=== PATIENT | male | born 1945 | race Caucasian/White ===

== ENCOUNTER 2020-07-05 10:38 | Emergency (ER) | payer OTHER ==
--- NOTE | 2020-07-05 11:39 | RAD ---
EXAM: XR Chest 1 View Portable PROVIDED CLINICAL HISTORY: Dyspnea COMPARISON: 06/28/2020 FINDINGS: Cardiac and mediastinal silhouette is unchanged in appearance. Persistent left pleural-parenchymal op acity. No evidence for pneumothorax. IMPRESSION: Persistent left basilar pleural-parenchymal opacity. Correlate for pneumonia. Follow-up recommended.
[2020-07-05 11:40] LABS: Bilirubin Negative (Negative); Blood, Urine Large (Negative); Glucose, Urine (Dipstick) Negative (Negative); Ketone, Urine Trace mg/dL (Negative); Leukocyte Small (Negative); Nitrite Negative (Negative); Protein, Urine (Dipstick) 100 mg/dL (Neg-Trace); Urobilinogen 0.2 mg/dL (Less than 2)
[2020-07-05 11:49] LABS: Clarity Clear (Clear)
[2020-07-05] MEDS ORDERED: Cefepime 2 GM VIAL ONE (11:53)
[2020-07-05 11:54] LABS: ALT (SGPT) 20 U/L (8-55); AST (SGOT) 20 U/L (5-34); Albumin 2.6 g/dL (3.4-4.8); Alkaline Phosphatase 48 U/L (40-110); Anion Gap 22 mmol/L (10-20); BUN (Urea Nitrogen) 124 mg/dL (8.4-25.7); Bilirubin, Total 0.9 mg/dL (0.2-1.2); Calc. Creatinine Clearance 0 mL/min (70-130); Calcium 8.3 mg/dL (7.8-10.44); Carbon Dioxide 22 mmol/L (23-31); Chloride 94 mmol/L (98-107); Globulin 4.5 g/dL (2.4-3.5); Glucose 109 mg/dL (83-110); Potassium 4.8 mmol/L (3.5-5.1); Protein, Total 7.1 g/dL (5.8-8.1); Sodium 133 mmol/L (136-145)
[2020-07-05 11:57] LABS: Bacteria/HPF Rare-Few HPF (None Seen); Squamous Epithelial 0-3 HPF (0-3)
[2020-07-05 12:14] LABS: CKMB 3.7 ng/mL (0-6.6)
[2020-07-05 12:29] LABS: SARS-CoV-2 NAA Rapid Test Not Detected (NotDetected)
[2020-07-05] MEDS ORDERED: Metoclopramide HCl 10 MG/2 ML VIAL ONE (12:29)
[2020-07-05] MEDS ORDERED: Acetaminophen 500 MG TAB ONE ×2 (13:17→19:27)
[2020-07-05] MEDS ORDERED: Aspirin 325 MG TAB ONE (13:18)
[2020-07-05 13:47] LABS: Hemoglobin 9.8 g/dL (14.0-18.0); Mean Corpuscular HGB CONC 32.9 g/dL (32.0-36.0); Mean Corpuscular Hemoglobin 27.1 pg (27.0-31.0); Mean Corpuscular Volume 82.5 fL (78.0-98.0); Mean Platelet Volume 7.7 fL (7.4-10.4); Platelet Count 434 thou/uL (130-400); White Blood Cell (WBC) Count 32.6 thou/uL (4.8-10.8)
[2020-07-05 14:09] LABS: Band 7 % (5-11); Lymphocytes 5 % (21-51); MDiff Complete? YES; Monocytes 3 % (0-10); Neutrophil 85 % (42-75); Platelet Morphology Comment Appears Increased; RBC Morphology Normal
[2020-07-05 14:29] LABS: Lactic Acid 1.4 mmol/L (0.5-2.2)
== END 2020-07-05 22:25 | disposition short-term general hospital (02) ==
LOC: EEVIPCON 10:38 → ERS 10:38
DX: J18.9 Pneumonia, unspecified organism (principal); A41.9 Sepsis, unspecified organism; R77.8 Other specified abnormalities of plasma proteins; Z20.828 Contact with and (suspected) exposure to other viral communicable diseases; I11.0 Hypertensive heart disease with heart failure; I50.9 Heart failure, unspecified; I25.2 Old myocardial infarction; Z79.82 Long term (current) use of aspirin; Z79.899 Other long term (current) drug therapy
CPT/HCPCS: 0240U; 36415; 51701; 71045; 80053; 81003; 81015; 82553; 83605; 83880; 84484; 85025; 87040; 87086; 93005; 96365; 96366; 96367; 96368; J0692; J1956; J2765; J3370; J7030